=== PATIENT | male | born 1965 | race Caucasian/White ===

== ENCOUNTER 2017-11-01 08:11 | Day surgery (SDC) | payer OTHER ==
[2017-11-01] MEDS ORDERED: NS 1000 ML 1,000 ML ONE (08:20)
[2017-11-01] MEDS ORDERED: DIPRIVAN VIAL 20 ML ONE ×2 (09:25→09:36)
[2017-11-01 10:19] VITALS: BP 130/83
--- NOTE | 2017-11-01 12:46 | OR.GENERIC ---
Post-Op Note Generic - Post-Op Note Operative Report: Procedure Note November 01, 2017 Pre-Operative Diagnosis: Screening colonoscopy. Post-Operative Diagnosis: Ascending colon polyp. Procedure: Colonoscopy to cecum with polypectomy (snare with cautery). Surgeon: Yusuf Rao MD Stereo Map Plotter Operator: Mary Anne Dow CRNA Specimens: Ascending polyp at 110 cm. Estimated blood loss: Minimal. Complications: None. Summary: The patient is a 52 year old male who presented for a screening colonoscopy. The risk and benefits of the procedure including difficulty with anesthesia, bleeding, infection, as well as perforation were discussed with the patient. The patient understood these risks and requested the procedure. On November 01, 2017, the patient was brought to the endoscopy suite. A time out was performed verifying the patient and procedure. The patient was placed in a left lateral decubitus position. After satisfactory induction of monitored anesthesia care, a rectal exam was performed. This was normal. Next, an endoscopy was advanced through the anus and directed to the cecum without difficulty. The scope was then withdrawn viewing all mucosal surfaces. The patients prep was adequate. The cecum was normal. No masses, polyps, or diverticula were seen. The scope was then withdrawn through the ascending region. No masses or diverticula were seen. However, a polyp was noted at 110 cm. This was removed using a snare with cautery. The scope was then withdrawn through the transverse, descending, as well as sigmoid portions of the colon. These regions were normal. Specifically, there were no masses, polyps, or diverticula. The scope was withdrawn into the rectum and retroflexed. No pathology was seen. The scope was straightened and insufflation evacuated. The scope was withdrawn and the procedure terminated. The patient was taken to the recovery room in stable condition. There were no complications.
== END 2017-11-01 10:21 | disposition home or self-care (01) ==
LOC: SURG1 08:11
PROVIDERS: ATTEND Student in an Organized Health Care Education/Training Program
PROC: 0DBK8ZX Excision of Ascending Colon, Via Natural or Artificial Opening Endoscopic, Diagnostic (ICD-10-PCS; principal; 2017-11-01 09:45)
PROC: 0DJD8ZZ Inspection of Lower Intestinal Tract, Via Natural or Artificial Opening Endoscopic (ICD-10-PCS; principal; 2017-11-01 09:45)
DX: Z12.11 Encounter for screening for malignant neoplasm of colon (principal); K63.5 Polyp of colon; D12.2 Benign neoplasm of ascending colon
CPT/HCPCS: A4217; J3490

== ENCOUNTER 2020-09-05 16:33 | Observation (INO) ==
[2020-09-05 16:39] VITALS: BMI 32.5
--- NOTE | 2020-09-05 16:53 | DR.GENAD ---
HPI - PCP Primary Care Physician: Priya Dawkins - Complaint/Symptoms Chief Complaint Doctors Comments: Patient states he was walking around his boat when he was unable to lift his left leg and his left arm felt heavy and it was hard to lift it up with numbness in the left side of his face lasting a few minutes with onset about 30 minutes ago. States he is a patient of [place] Dawkins and he did not take his blood pressure medicines this morning. He takes Lisinopril 40mg daily. He denies chest pain, SOB, cold or cough. He denies headache but had dizziness when walking around his boat. He denies tobacco use but drinks alcohol at times. He denies drug usage. States he was unable to lift his left leg high initially but he is able to lift his leg and arms presently. States his left leg felt weak and he knew he had to set down. States he was able to walk to the house. Self Treatment fo Chief Complaint: Patient reports "all of a sudden" numbness left side onset 30 minutes ago. Patient reports he has not taken BP medication until [employer]. Patient reports he can move all extemities at present but still "feels heavy". Patient also reports being tired. - COVID-19 Coronavirus risk:travel/contact w/high risk person: No Has patient experienced Coronavirus symptoms: No - Nurses notes reviewed Nurses Notes Review: Yes - Source History Provided: Patient - Mode of Arrival Mode of Arrival: Wheelchair - Timing Onset of Chief Complaint: 09/05/20 Came on: Suddenly - Duration Duration: Intermittent How lon Duration: Minutes - Location Location: weakness left arm and leg - Severity Severity: Moderate - Modifying Factors Worsens:: nothing Improves:: nothing PMH - PMH Past Medical History: Yes Past Medical History: Hypertension Past Surgical History: Yes Surgical History: Cholecystectomy Past Surgical History Comment: Lumbar - Family History History of Family Medical Conditions: Yes Family Medical History: Coronary Artery Disease - Social History Type of Tobacco Use: Smokeless Alcohol Use: Other Do you use any recreational Drugs:: No Lives With: Family Lives Where: Home - infectious screening In the last 2 months have you had wt loss of >10#?: NO Have you had fever, night sweats or hemotysis?: No Have you traveled outside the country in the last 6 months?: No Isolation: Standard ROS - Review of Systems Constitutional: No Symptoms Reported Eyes: No Symptoms Reported ENTM: No Symptoms Reported Respiratoy: No Symptoms Reported Cardiovascular: No Symptoms Reported. negative: See HPI, Chest Pain, Edema, Palpitations, Syncope, Cyanosis, Skin Mottling, Other Gastrointestinal/Abdominal: No Symptoms Reported. negative: See HPI, Abdominal Pain, Constipation, Diarrhea, Nausea, Vomiting, Food Intolerance, Other Genitourinary: No Symptoms Reported. negative: See HPI, Discharge, Dysuria, Frequency, Hematuria, Pain, Bleeding, Other Neurological: No Symptoms Reported, Weakness (left arm and leg), Problems Walking Musculoskeletal: No Symptoms Reported Integumentary: No Symptoms Reported Hematologic/Lymphatic: No Symptoms Reported. negative: See HPI, Anemia, Blood Clots, Easy Bleeding, Easy Bruising, Swollen Glands, Lymphadenopathy, Other Endocrine: No Symptoms Reported Psychiatric: No Symptoms Reported. negative: See HPI, Anxiety, Depression, Hallucinations, Excessive crying, Suicidal, Other PE - General Limitations: No Limitations General Appearance: Alert, In Distress (mild) - Head Head Exam: Normal Inspection, Atraumatic, Normocephalic - Eyes Eye exam: Normal Appearance, PERRL, EOMI. negative: Scleral Icterus, Conjunctival Injection, Nystagmus, Miosis, Mydrasis, Periorbital Swelling, Periorbital Tenderness, Other - ENT ENT Exam: Normal Exam, Normal Oropharynx, Normal External Ear Exam, Mucous Membranes Moist, TM's Normal Bilaterally External Ear Exam: Normal External Inspection TM/Canal Exam: Bilateral Normal Nose Exam: Normal Nose Exam Mouth Exam: Normal Inspection. negative: Drooling, Trismus, Lip Swelling, Tongue Elevation, Tongue Swelling, Laceration, Other Throat Exam: Normal Inspection. negative: Tonsillar Erythema, Tonsillomegaly, Tonsillar Exudate, R Peritonsillar Mass, L Peritonsillar Mass, Muffled Voice, Other - Neck Neck Exam: Normal Inspection, Full ROM, Trachea Midline. negative: Tenderness, Meningismus, Lymphadenopathy, Thyromegaly, Other - Chest Chest Inspection: Normal Inspection, Symmetric Chest Wall Rise. negative: Tenderness, Rash, Abscess, Other - Respiratory Respiratory Exam: Normal Lung Sounds Bilat Respiratory Exam: Bilateral Clear to Auscultation - Cardiovascular Cardiovascular Exam: Regular Rate, Normal Rhythm, Normal Heart Sounds - Abdominal Exam Abdominal Exam: Normal Inspection, Normal Bowel Sounds, Soft. negative: Distention, Tenderness, Guarding, Rebound, Rigidity, Dimnished Bowel Sounds, Hyperactive Bowel Sounds, Hypoactive Bowel Sounds, Organomegaly, Trauma, Incision, Ascites, Mass, Bruit, Pulsatile Mass, Hernia, Other Abdominal Tenderness: negative: RUQ, RLQ, LUQ, LLQ, Epigastrium, Suprapubic, Diffuse, Mild, Moderate, Severe, Other - Extremities Extremities Exam: Normal Inspection, Full ROM, Normal Capillary Refill. negative: Tenderness, Edema, Joint Swelling, Calf Tenderness, Other - Back Back Exam: Normal Inspection, Full ROM. negative: Tenderness, (R) CVA Tendernes s, (L) CVA Tenderness, Muscle Spasm, Paraspinal Tenderness, Vertebral Tenderness, Rashes, (R) Sciatic Notch Tenderness, (L) Sciatic Notch Tendern, (R) Straight Leg Raise, (L) Straight Leg Raise, Other - Neurologic Neurological Exam: Alert, Oriented X3, CN II-XII Intact, Reflexes Normal. negative: Normal Gait (gait not tested) - Psychiatric Psychiatric Exam: Normal Affect, Normal Mood. negative: Depressed, Agitated, A nxious, Flat Affect, Manic, Homicidal Ideation, Suicidal Ideation, Other - Skin Skin Exam: Warm, Dry, Intact, Normal Color. negative: Rash, Cyanosis, Diaphoresis, Erythema, Pallor, Mottled, Other - Vital Signs Vitals: Pulse Rate 74 Respiratory Rate 22 Blood Pressure [Left Arm] 137/84 Blood Pressure 184/101 O2 Sat by Pulse Oximetry 99 Course - Reevaluation 1st: Improved - Consultation Called: 18:44 Call Returned: 18:44 (Dr. Le to admit) - Education/Counseling Education/Counseling: Patient, Family Educated On: Treatment, Diagnosis, Prognosis, Needs for Follow Up ROR - Labs Reviewed Laboratory Results Reviewed?: Yes (All labs and x-ray results reviewed and discussed with patient) Result Diagrams: 09/05/20 16:45 09/05/20 16:45 - XRAY XRAY Interpreted by: Radiologist (CT brain: No acute intracranial abnormalites seen. Moderate diffuse voume loss in the brain is mildly advanced for age.) - EKG Rate: 76 [place]: Normal Rhythm: NSR Block: None Hypertrophy: None ST: Normal - Labs Reviewed Laboratory: WBC 7.3 X10^3/uL (3.6-10.0) 09/05/20 16:45 RBC 5.35 X10^6/uL (4.7-6.0) 09/05/20 16:45 Hgb 16.6 g/dL (13.5-18.0) 09/05/20 16:45 Hct 48.5 % (42.0-54.0) 09/05/20 16:45 MCV 90.7 fL (80.0-100.0) 09/05/20 16:45 MCH 31.0 pg (27.0-34.0) 09/05/20 16:45 MCHC 34.2 g/dL (33.0-35.0) 09/05/20 16:45 RDW 13.3 % (11.6-16.5) 09/05/20 16:45 Plt Count 237 X10^3/uL (150.0-450.0) 09/05/20 16:45 MPV 9.0 fL (7.4-11.0) 09/05/20 16:45 Neut % (Auto) 57.9 % (42.0-75.0) 09/05/20 16:45 Lymph % (Auto) 28.7 % (21.0-51.0) 09/05/20 16:45 [place] % (Auto) 10.1 % (0.0-13.0) 09/05/20 16:45 Eos % (Auto) 2.9 % (0.9-2.9) 09/05/20 16:45 Baso % (Auto) 0.4 % (0.2-1.0) 09/05/20 16:45 Neut # (Auto) 4.2 x10^3/uL (2.2-4.8) 09/05/20 16:45 Lymph # (Auto) 2.1 X10^3/uL (1.3-2.9) 09/05/20 16:45 [place] # (Auto) 0.7 x10^3/uL (0.3-0.8) 09/05/20 16:45 Eos # (Auto) 0.2 x10^3/uL (0.0-0.2) 09/05/20 16:45 Baso # (Auto) 0.0 X10^3/uL (0.0-0.1) 09/05/20 16:45 Absolute Nucleated RBC 0.3 /100WBC 09/05/20 16:45 PT 13.0 SECONDS (11.8-14.3) 09/05/20 16:45 INR Target Range - 09/05/20 16:45 INR 1.01 (0.8-1.3) 09/05/20 16:45 APTT 29.2 SECONDS (22.9-36.5) 09/05/20 16:45 PTT Comment - 09/05/20 16:45 D-Dimer 0.31 ug/ml (0.0-0.57) 09/05/20 16:45 D-Dimer Cancelled 09/05/20 16:45 Sodium 144 mmol/L (136-145) 09/05/20 16:45 Corrected Sodium TNP 09/05/20 16:45 Potassium 4.7 mmol/L (3.5-5.1) 09/05/20 16:45 Chloride 108 mmol/L (98-107) H 09/05/20 16:45 Carbon Dioxide 29.9 mmol/L (21-32) 09/05/20 16:45 BUN 18 mg/dL (7-18) 09/05/20 16:45 Creatinine 1.27 mg/dL (0.70-1.30) 09/05/20 16:45 Est GFR (MDRD) Af Amer > 60 (>60) 09/05/20 16:45 Est GFR (MDRD) Non-Af > 60 (>60) 09/05/20 16:45 Glucose 108 mg/dL (65-99) H 09/05/20 16:45 Calcium 9.5 mg/dL (8.5-10.1) 09/05/20 16:45 Corrected Calcium TNP 09/05/20 16:45 Magnesium 2.3 mg/dL (1.7-2.9) 09/05/20 16:45 Total Bilirubin 0.40 mg/dL (0.2-1.0) 09/05/20 16:45 AST 15 Units/L (15-37) 09/05/20 16:45 ALT 44 Units/L (12-78) 09/05/20 16:45 Alkaline Phosphatase 89 Units/L (46-116) 09/05/20 16:45 Creatine Kinase 103 Units/L (39-308) 09/05/20 16:45 CK-MB (CK-2) 1.5 ng/mL (0-4.0) 09/05/20 16:45 CK/CKMB % Calc 1.5 % (<4) 09/05/20 16:45 Troponin I < 0.02 ng/mL (0-1.5) 09/05/20 16:45 Total Protein 7.1 g/dL (6.4-8.2) 09/05/20 16:45 Albumin 3.8 g/dL (3.4-5.0) 09/05/20 16:45 Globulin 3.3 g/dL (2.5-4.5) 09/05/20 16:45 Albumin/Globulin Ratio 1.2 Ratio (1.1-2.1) 09/05/20 16:45 - XRAY Xray Findings: CXR: No acute cardiomegaly. No focal airspace disease. No pneumothorax. No acute osseous abnormality. ([place]) Opioid - Opioid Risk Tool Total: 0 Total Score Risk Category: Low Risk - Diagnosis Discharge Problem: TIA (transient ischemic attack), Accelerated hypertension - Discharge Plan Disposition: ADMITTED INPATIENT Condition: Stable - Follow ups/Referrals Follow ups/Referrals: NAHOMI DAWKINS [Primary Care Provider] - 3 days - Instructions
[2020-09-05] MEDS ORDERED: CATAPRES TAB 0.2 MG PO ONE (16:55)
[2020-09-05 17:06] LABS: BASOPHILS % (AUTO) 0.4 % (0.2-1.0); EOSINOPHILS # (AUTO) 0.2 x10^3/uL (0.0-0.2); EOSINOPHILS % (AUTO) 2.9 % (0.9-2.9); HEMATOCRIT 48.5 % (42.0-54.0); HEMOGLOBIN 16.6 g/dL (13.5-18.0); LYMPHOCYTES # (AUTO) 2.1 X10^3/uL (1.3-2.9); LYMPHOCYTES % (AUTO) 28.7 % (21.0-51.0); MEAN CORPUSCULAR HGB CONC 34.2 g/dL (33.0-35.0); MEAN CORPUSCULAR VOLUME 90.7 fL (80.0-100.0); MONOCYTES # (AUTO) 0.7 x10^3/uL (0.3-0.8); MONOCYTES % (AUTO) 10.1 % (0.0-13.0); NEUTROPHILS # (AUTO) 4.2 x10^3/uL (2.2-4.8); NEUTROPHILS % (AUTO) 57.9 % (42.0-75.0); PLATELET COUNT 237 X10^3/uL (150.0-450.0); RED BLOOD COUNT 5.35 X10^6/uL (4.7-6.0); RED CELL DISTRIBUTION WIDTH 13.3 % (11.6-16.5); WHITE BLOOD COUNT 7.3 X10^3/uL (3.6-10.0)
[2020-09-05] MEDS ORDERED: CATAPRES TAB 0.2 MG ONE (17:11)
[2020-09-05 17:26] LABS: BLOOD UREA NITROGEN 18 mg/dL (7-18); CALCIUM 9.5 mg/dL (8.5-10.1); CARBON DIOXIDE 29.9 mmol/L (21-32); CHLORIDE 108 mmol/L (98-107); CREATININE 1.27 mg/dL (0.70-1.30); SODIUM 144 mmol/L (136-145); TROPONIN I < 0.02 ng/mL (0-1.5); eGFR NON BLACK RACES > 60 (>60)
--- NOTE | 2020-09-05 17:27 | CT ---
HISTORYPainSTUDYCT brain without IV contrastCOMPARISONNoneTECHNIQUEMultiple axial images of the brain were obtained without IV contrast. Dose reduction techniques including Automated Exposure Control (AEC) and adjustment of mA and kV were utilized.FINDINGSMild chronic small vessel ischemic changes. No calvarial fracture is seen. No acute intracranial hemorrhage or mass effect is seen. Moderate diffuse volume loss with compensatory enlargement of the ventricular system. No evidence of acute CVA.IMPRESSIONNo acute intracranial abnormalities are seen.Moderate diffuse volume loss in the brain is mildly advanced for the patient's age.Electronically signed by: Humberto Hernandez (Sep 05, 2020 17:25:29)
--- NOTE | 2020-09-05 17:27 | RAD ---
HISTORYCHEST PAINSTUDYCHEST, 1 VIEWCOMPARISONNone availableTECHNIQUEChest radiographic imaging, AP portable projection, 1 imageFINDINGSNo cardiomegaly.No focal airspace disease.No pleural effusion.No pneumothorax.No acute osseous abnormality.IMPRESSIONNo imaging findings of acute cardiopulmonary disease.Electronically signed by: Mike Helton (Sep 05, 2020 17:25:20)
[2020-09-05 17:30] LABS: ALANINE AMINOTRANSFERASE 44 Units/L (12-78); ALBUMIN 3.8 g/dL (3.4-5.0); ALKALINE PHOSPHATASE 89 Units/L (46-116); ASPARTATE AMINO TRANSFERASE 15 Units/L (15-37); CKMB % 1.5 % (<4); CREATINE KINASE 103 Units/L (39-308); CREATINE KINASE MB 1.5 ng/mL (0-4.0); MAGNESIUM 2.3 mg/dL (1.7-2.9); TOTAL PROTEIN 7.1 g/dL (6.4-8.2)
[2020-09-05 19:10] LABS: CHOL/HDL RATIO 4.3 (0.0-5.0)
[2020-09-06] MEDS: ZESTRIL TAB 40 MG PO SCH ×2 (00:15→10:35)
[2020-09-06 04:55] LABS: BASOPHILS # (AUTO) 0.1 X10^3/uL (0.0-0.1); BASOPHILS % (AUTO) 0.9 % (0.2-1.0); EOSINOPHILS # (AUTO) 0.2 x10^3/uL (0.0-0.2); EOSINOPHILS % (AUTO) 3.2 % (0.9-2.9); HEMATOCRIT 45.6 % (42.0-54.0); HEMOGLOBIN 15.3 g/dL (13.5-18.0); LYMPHOCYTES # (AUTO) 2.7 X10^3/uL (1.3-2.9); LYMPHOCYTES % (AUTO) 37.1 % (21.0-51.0); MEAN CORPUSCULAR HEMOGLOBIN 30.8 pg (27.0-34.0); MEAN CORPUSCULAR HGB CONC 33.6 g/dL (33.0-35.0); MEAN CORPUSCULAR VOLUME 91.7 fL (80.0-100.0); MEAN PLATELET VOLUME 9.1 fL (7.4-11.0); MONOCYTES # (AUTO) 0.8 x10^3/uL (0.3-0.8); MONOCYTES % (AUTO) 10.4 % (0.0-13.0); NEUTROPHILS # (AUTO) 3.5 x10^3/uL (2.2-4.8); NEUTROPHILS % (AUTO) 48.4 % (42.0-75.0); PLATELET COUNT 204 X10^3/uL (150.0-450.0); RED BLOOD COUNT 4.97 X10^6/uL (4.7-6.0); RED CELL DISTRIBUTION WIDTH 13.4 % (11.6-16.5); WHITE BLOOD COUNT 7.3 X10^3/uL (3.6-10.0)
[2020-09-06 05:11] LABS: ALANINE AMINOTRANSFERASE 36 Units/L (12-78); ALBUMIN 3.1 g/dL (3.4-5.0); ALKALINE PHOSPHATASE 71 Units/L (46-116); ASPARTATE AMINO TRANSFERASE 18 Units/L (15-37); BLOOD UREA NITROGEN 16 mg/dL (7-18); CALCIUM 8.5 mg/dL (8.5-10.1); CHLORIDE 107 mmol/L (98-107); COR CA(FOR HYPOALB) 9.2 mg/dL (8.5-10.1); COR NA(FOR HYPERGLY) 141 mmol/L (136-145); CREATININE 1.01 mg/dL (0.70-1.30); SODIUM 140 mmol/L (136-145); eGFR NON BLACK RACES > 60 (>60)
[2020-09-06 10:17] VITALS: BP 115/77
[2020-09-06] MEDS ORDERED: ZESTRIL TAB 20 MG ONE (10:24)
--- NOTE | 2020-09-06 10:30 | DR.SSS ---
SHORT STAY SUMMARY Admission Date Date of Admission: 09/05/20 Discharge Date Discharge Date: 09/06/20 Admission Diagnoses Admission Diagnoses: Accelerated hypertension TIA Discharge Diagnoses Discharge Diagnoses: Accelerated hypertension TIA Chief Complaint Chief Complaint: left sided numbness History of Present Illness History of Present Illness: Pt is a 55 year old male past medical history of hypertension reports episode of left sided "numbness" and "heaviness" that occurred yesterday morning. [place] his [place] when symptoms presented. He states he forgot to take his lisinopril for blood pressure. He felt symptoms wit h some weakness in his left arm and left leg that resolved after a few minutes. He went to the ED for further evaluation. Past Medical History Past Medical History: Hypertension Past Surgical History Surgical History: Cholecystectomy and Ortho Surgery Allergies Allergies Allergy/AdvReac Type Severity Reaction Status Date / Time No Known Drug Allergies Allergy Verified 11/01/17 08:38 Medications Home Medications: No Known Drug Allergies Allergy (Verified 11/01/17 08:38) CONTINUE taking the following medications lisinopril 40 mg PO ONCE 09/05/20 [History] New Prescriptions atorvastatin [Lipitor] 20 mg PO QHS #30 tab 09/06/20 [Rx] Family History Family Medical History: Coronary Artery Disease Social History Does patient currently use any type of tobacco product: Yes Have you used tobacco products in the last 12 months: Yes Type of Tobacco Use: Smokeless Alcohol Use: Occasionally Drug Use: None Review of Systems Constitutional: No Symptoms Reported Eyes: No Symptoms Reported ENT: No Symptoms Reported Respiratory: No Symptoms Reported Cardiovascular: No Symptoms Reported Gastrointestinal: No Symptoms Reported Genitourinary: No Symptoms Reported Musculoskeletal: No Symptoms Reported Skin: No Symptoms Reported Neurological: Weakness (LUE, LLE) and Numbness (Left sided, LUE, and LLE); denies Incoordination, Change in Speech, Confusion and Seizures Physical Exam Vital Signs: Last Vital Signs Temp 98.2 F 09/06/20 08:00 Pulse 58 L 09/06/20 08:00 Resp 18 09/06/20 08:00 BP 115/77 09/06/20 08:00 Pulse Ox 96 09/06/20 08:00 Oriented: Normal Eyes: Normal Ear: Normal Nose: Normal Throat: Normal Respiratory: Clear Throughout Cardiovascular: Normal : Normal Auscultation: Bowel Sounds: Normal Palpation: Normal Tenderness: Normal Skin: Normal Musculoskeletal: Normal Psychiatric: Normal Mood Description: Calm Speech Pattern: Clear Labs Labs: Laboratory Last Values WBC 7.3 X10^3/uL (3.6-10.0) 09/06/20 04:00 RBC 4.97 X10^6/uL (4.7-6.0) 09/06/20 04:00 Hgb 15.3 g/dL (13.5-18.0) 09/06/20 04:00 Hct 45.6 % (42.0-54.0) 09/06/20 04:00 MCV 91.7 fL (80.0-100.0) 09/06/20 04:00 MCH 30.8 pg (27.0-34.0) 09/06/20 04:00 MCHC 33.6 g/dL (33.0-35.0) 09/06/20 04:00 RDW 13.4 % (11.6-16.5) 09/06/20 04:00 Plt Count 204 X10^3/uL (150.0-450.0) 09/06/20 04:00 MPV 9.1 fL (7.4-11.0) 09/06/20 04:00 Neut % (Auto) 48.4 % (42.0-75.0) 09/06/20 04:00 Lymph % (Auto) 37.1 % (21.0-51.0) 09/06/20 04:00 [place] % (Auto) 10.4 % (0.0-13.0) 09/06/20 04:00 Eos % (Auto) 3.2 % (0.9-2.9) H 09/06/20 04:00 Baso % (Auto) 0.9 % (0.2-1.0) 09/06/20 04:00 Neut # (Auto) 3.5 x10^3/uL (2.2-4.8) 09/06/20 04:00 Lymph # (Auto) 2.7 X10^3/uL (1.3-2.9) 09/06/20 04:00 [place] # (Auto) 0.8 x10^3/uL (0.3-0.8) 09/06/20 04:00 Eos # (Auto) 0.2 x10^3/uL (0.0-0.2) 09/06/20 04:00 Baso # (Auto) 0.1 X10^3/uL (0.0-0.1) 09/06/20 04:00 Absolute Nucleated RBC 0.0 /100WBC 09/06/20 04:00 PT 13.0 SECONDS (11.8-14.3) 09/05/20 16:45 INR Target Range - 09/05/20 16:45 INR 1.01 (0.8-1.3) 09/05/20 16:45 APTT 29.2 SECONDS (22.9-36.5) 09/05/20 16:45 APTT Cancelled 09/05/20 16:45 PTT Comment - 09/05/20 16:45 PTT Comment Cancelled 09/05/20 16:45 Fibrinogen 304 mg/dL (239-489) 09/05/20 16:45 D-Dimer 0.31 ug/ml (0.0-0.57) 09/05/20 16:45 D-Dimer Cancelled 09/05/20 16:45 Sodium 140 mmol/L (136-145) 09/06/20 04:00 Corrected Sodium 141 mmol/L (136-145) 09/06/20 04:00 Potassium 3.5 mmol/L (3.5-5.1) 09/06/20 04:00 Chloride 107 mmol/L (98-107) 09/06/20 04:00 Carbon Dioxide 26.0 mmol/L (21-32) 09/06/20 04:00 BUN 16 mg/dL (7-18) 09/06/20 04:00 Creatinine 1.01 mg/dL (0.70-1.30) 09/06/20 04:00 Est GFR (MDRD) Af Amer > 60 (>60) 09/06/20 04:00 Est GFR (MDRD) Non-Af > 60 (>60) 09/06/20 04:00 Glucose 136 mg/dL (65-99) H 09/06/20 04:00 Calcium 8.5 mg/dL (8.5-10.1) 09/06/20 04:00 Corrected Calcium 9.2 mg/dL (8.5-10.1) 09/06/20 04:00 Magnesium 2.3 mg/dL (1.7-2.9) 09/05/20 16:45 Total Bilirubin 0.30 mg/dL (0.2-1.0) 09/06/20 04:00 AST 18 Units/L (15-37) 09/06/20 04:00 ALT 36 Units/L (12-78) 09/06/20 04:00 Alkaline Phosphatase 71 Units/L (46-116) 09/06/20 04:00 Creatine Kinase 103 Units/L (39-308) 09/05/20 16:45 CK-MB (CK-2) 1.5 ng/mL (0-4.0) 09/05/20 16:45 CK/CKMB % Calc 1.5 % (<4) 09/05/20 16:45 Troponin I < 0.02 ng/mL (0-1.5) 09/05/20 16:45 Total Protein 6.0 g/dL (6.4-8.2) L 09/06/20 04:00 Albumin 3.1 g/dL (3.4-5.0) L 09/06/20 04:00 Globulin 2.9 g/dL (2.5-4.5) 09/06/20 04:00 Albumin/Globulin Ratio 1.1 Ratio (1.1-2.1) 09/06/20 04:00 Triglycerides 113 mg/dL (0-150) 09/05/20 16:45 Cholesterol 209 mg/dL (0-200) H 09/05/20 16:45 LDL Cholesterol, Calc 137 mg/dL (0-100) H 09/05/20 16:45 HDL Cholesterol 49 mg/dL (40-60) 09/05/20 16:45 Cholesterol/HDL Ratio 4.3 (0.0-5.0) 09/05/20 16:45 SARS CoV-2 RNA Rapid [place] Negative (NEGATIVE) 09/05/20 20:00 Assessment/Plan (1) Accelerated hypertension: (2) TIA (transient ischemic attack): Hospital Course Hospital Course: Pt is a 55 year old male past medical history of hypertension reports episode of left sided "numbness" and "heaviness" that occurred yesterday morning. [place] his barn when symptoms presented. He states he forgot to take his lisinopril for blood pressure. He felt symptoms in his left arm and left leg that resolved after a few minutes. He went to the ED for further evaluation. He was found to have accelerated hypertension on arrival to ED and given clonidine that he responded well to. Labs/imaging: Wbc 7.3, Hgb 15.3, Plt 204, Na 140, K 3.5, Cr 1.01, Glucose 136, AST 18, ALT 36, ALKP 71, Cholesterol 209, LDL 137, HDL 49, COVID-19 negative, CXR negative, CT head negative for acute abnormalities. Pt was admitted for further observation and neuro checks. No events overnight and on exam no focal deficits. Symptoms likely due to accelerated hypertension. Discussed with patient importance of taking home lisinopril daily. Rx Lipitor and instructed to take otc aspirin to reduce stroke risk. Pt was discharged in stable condition. Instructed to follow up with pcp in 3-5 days. Discharge Medications Discharge Medications: Home Medication List lisinopril 40 mg PO ONCE 09/05/20 [History] atorvastatin [Lipitor] 20 mg PO QHS #30 tab 09/06/20 [Rx] Prescriptions: atorvastatin [Lipitor] Dante Le Discharge Disposition Discharge Disposition: Home
== END 2020-09-06 10:46 | disposition home or self-care (01) ==
LOC: OBS 16:33 → ER 16:33 → OBS 23:51
PROVIDERS: ADMIT Family Medicine; ATTEND Family Medicine
DX: G45.9 Transient cerebral ischemic attack, unspecified; R13.12 Dysphagia, oropharyngeal phase; I10 Essential (primary) hypertension; R42 Dizziness and giddiness; R20.0 Anesthesia of skin